=== PATIENT | female | born 1975 | race Caucasian/White ===

== ENCOUNTER 2019-11-22 12:19 | Emergency (ER) | payer OTHER ==
[~2019-11-22] VITALS: Ht 157.5 cm; Wt 95.2 kg
[~2019-11-22 12:19] MED LIST: ACET325; CEPH500 PO; Cyclobenzaprine5 MG PO; HYDACE5 PO; HYDACE5325 PO; HYDPAM25; IBUP400 PO; IBUP800 PO; PENVK500 PO; PROACE100 PO; Pyridium200 MG PO; RXHYD5325 PO; RXOXYACE PO; RXPROACE PO; SERTRALINE; Ultram50 MG PO; ZOLOFT; [UNRECOGNIZED DRUG - OTHER]
[2019-11-22] MEDS ORDERED: IBUP400 PO (13:25)
== END 2019-11-22 13:44 | disposition home or self-care (01) ==
LOC: ER 12:19
DX: M25.562 Pain in left knee (principal); F41.9 Anxiety disorder, unspecified; F31.9 Bipolar disorder, unspecified; F43.10 Post-traumatic stress disorder, unspecified; Z91.030 Bee allergy status; F17.210 Nicotine dependence, cigarettes, uncomplicated
CPT/HCPCS: 29505; 73562-LT; 99283-25

== ENCOUNTER 2021-10-03 04:18 | Emergency (ER) | payer OTHER ==
[~2021-10-03] VITALS: Ht 154.9 cm; Wt 88.5 kg
[2021-10-03 06:43] LABS: BASOPHILS ABSOLUTE AUTO 0.03 K/mm3 (0.00-0.23); BASOPHILS PERCENT AUTO 0 % (0-2); EOSINOPHILS ABSOLUTE AUTO 0.19 K/mm3 (0.00-0.68); EOSINOPHILS PERCENT AUTO 2 % (0-6); Hematocrit 41.2 % (33.0-51.0); Hemoglobin 13.1 g/dL (11.5-16.0); IMMATURE GRAN ABSOLUTE AUTO 0.05 K/mm3 (0.00-0.10); IMMATURE GRAN PERCENT AUTO 1 % (0-1); LYMPHOCYTES PERCENT AUTO 19 % (21-46); MONOCYTES ABSOLUTE AUTO 0.79 K/mm3 (0.16-1.47); MONOCYTES PERCENT AUTO 7 % (4-13); Mean Corpuscular HGB 29.1 pg (26.0-34.0); Mean Corpuscular HGB Conc 31.8 g/dL (31.5-36.5); Mean Corpuscular Volume 92 fL (80-100); Mean Platelet Volume 8.5 fL (9.1-12.4); NEUTROPHILS ABSOLUTE AUTO 7.94 K/mm3 (1.96-9.15); NEUTROPHILS PERCENT AUTO 72 % (41-73); Platelet Count 365 K/mm3 (150-400); RDW Coefficient Variation 14.3 % (11.7-14.2); RDW Standard Deviation 48.5 fL (35.1-46.3)
[2021-10-03 06:52] LABS: Anion Gap 7 mmol/L (6-16); Blood Urea Nitrogen 9 mg/dL (8-24); Bun/Creatinine Ratio 14.9 (12.0-20.0); CO2, Blood 22 mmol/L (21-32); Calcium, Blood 8.6 mg/dL (8.5-10.1); Chloride, Blood 107 mmol/L (98-108); Glomerular Filtration Rate >60 (60-); Glucose, Blood 122 mg/dL (70-99); Potassium, Blood 3.4 mmol/L (3.5-5.5); Sodium, Blood 136 mmol/L (136-145)
[2021-10-03] MEDS ORDERED: HYDR1TAB94 PO (08:47)
[2021-10-03] MEDS ORDERED: SULTRIDS PO (08:47)
== END 2021-10-03 09:40 | disposition home or self-care (01) ==
LOC: ER 04:18
PROVIDERS: Emergency Medicine
DX: L03.211 Cellulitis of face (principal); F17.210 Nicotine dependence, cigarettes, uncomplicated; Z91.030 Bee allergy status
CPT/HCPCS: 36415; 70487; 80048; 85025; 96374; 99284-25; A9270; J1100; Q9967